=== PATIENT | male | born 1930 ===

== ENCOUNTER 2018-09-28 09:00 | Inpatient (IN) ==
[2018-09-22 13:44] LABS: Appearance,Urine CLEAR; Bilirubin,Urine NEG (NEG); Color,Urine YELLOW; Glucose,Urine (UA) NEGATIVE (NEG); Leukocyte Esterase,Urine NEG /uL (NEG); Protein,Urine NEG (NEG); Specific Gravity,Urine 1.028 (1.000-1.035); Urine Blood NEG mg/dL (<0.03); Urobilinogen,Urine NEG (NEG)
[2018-09-22 15:31] LABS: Blood Urea Nitrogen 37 mg/dl (8-23)
[2018-09-22 16:10] LABS: Basophils # (Auto) 0 K/mcL (0.0-0.3); Basophils % (Auto) 0.3 % (0.0-2.0); Eosinophils # (Auto) 0 K/mcL (0.0-0.7); Eosinophils % (Auto) 0.5 % (0.0-7.0); Granulocytes % (Auto) 76.3 % (38.0-78.0); Lymphocytes # (Auto) 1.1 K/mcL (1.5-4.8); Lymphocytes % (Auto) 13.8 % (15.5-49.0); Mean Cell Volume 91.2 fL (80.0-100.0); Mean Corpuscular HGB Conc 32.5 g/dL (31.0-36.0); Monocytes # (Auto) 0.7 K/mcL (0.1-0.9); Monocytes % (Auto) 9.1 % (1.0-12.0); Platelet Count 256 K/mcL (140-440); RBC 4.71 M/mcL (4.50-5.90); Red Cell Distribution Width 14.6 % (11.5-14.5)
[~2018-09-28 09:00] MED LIST: 0.9 % SODIUM CHLORIDE 9 ML, KETOROLAC 30 MG, ROPIVACAINE HCL/PF 49.5 ML, EPINEPHrine 0.... IJ SCH; ACETAMINOPHEN 500 MG TABLET PO SCH; CELECOXIB 200 MG CAPSULE PO SCH; PREGABALIN 75 MG CAPSULE PO SCH; ceFAZolin 2 GM in DEXTROSE 5% IN WATER 50 ML IV SCH; oxyCODONE 10 MG TAB.ER.12H PO SCH
[2018-09-28] MEDS ORDERED: LIDOCAINE HCL/PF 100 MG/5 ML SYRINGE IV ONE (13:00)
[2018-09-28] MEDS ORDERED: ONDANSETRON 4 MG/2 ML VIAL IV ONE (13:00)
[2018-09-28] MEDS ORDERED: PROPOFOL 200 MG/20 ML VIAL IV ONE (13:00)
[2018-09-28] MEDS ORDERED: GLYCOPYRROLATE 0.2 MG/ML VIAL IV ONE (13:00)
[2018-09-28] MEDS ORDERED: PHENYLEPHRINE 10 MG/ML VIAL IV ONE (13:00)
[2018-09-28] MEDS ORDERED: MIDAZOLAM 5 MG/5 ML VIAL IV ONE (13:00)
[2018-09-28] MEDS ORDERED: DEXAMETHASONE 10 MG/ML VIAL IV ONE (13:00)
[2018-09-28] MEDS ORDERED: TRANEXAMIC ACID 1,000 MG/10 ML VIAL IV ONE ×2 (13:00→14:21)
[2018-09-28] MEDS ORDERED: GENTAMICIN SULFATE 800 MG/20 ML VIAL IR ONE (13:24)
[2018-09-28] MEDS ORDERED: FLUMAZENIL 0.1 MG/ML ML IV PRN (13:30)
[2018-09-28] MEDS ORDERED: BENZOCAINE/MENTHOL 1 LOZENGE PO PRN ×2 (13:30→14:21)
[2018-09-28] MEDS ORDERED: ONDANSETRON 4 MG/2 ML VIAL IV PRN ×2 (13:30→14:21)
[2018-09-28] MEDS ORDERED: IPRATROPIUM/ALBUTEROL 3 ML AMPUL.NEB NEB PRN (13:30)
[2018-09-28] MEDS ORDERED: fentaNYL 100 MCG/2 ML VIAL IV PRN (13:30)
[2018-09-28] MEDS ORDERED: LACTATED RINGERS 250 ML IV PRN (13:30)
[2018-09-28] MEDS ORDERED: METHOCARBAMOL 1,000 MG/10 ML VIAL IV PRN (13:30)
[2018-09-28] MEDS ORDERED: LACTATED RINGERS 1,000 ML IV SCH (13:30)
[2018-09-28] MEDS ORDERED: NALOXONE HCL 0.4 MG/ML VIAL IV PRN (13:30)
[2018-09-28] MEDS ORDERED: TEMAZEPAM 15 MG CAPSULE PO PRN (14:21)
[2018-09-28] MEDS ORDERED: KETOROLAC 15 MG/ML VIAL IV PRN (14:21)
[2018-09-28] MEDS ORDERED: POLYETHYLENE GLYCOL 3350 17 GM PACKET PO PRN (14:21)
[2018-09-28] MEDS ORDERED: MAGNESIUM HYDROXIDE 30 ML ORAL.SUSP PO PRN (14:21)
[2018-09-28] MEDS ORDERED: HYDROCODONE/APAP 7.5/325MG TABLET PO PRN (14:21)
[2018-09-28] MEDS ORDERED: HYDROmorphone 2 MG/ML VIAL IV PRN (14:21)
[2018-09-28] MEDS ORDERED: ACETAMINOPHEN 325 MG TABLET PO PRN ×2 (14:21→14:24)
[2018-09-28] MEDS ORDERED: FLEETS ADULT ENEMA PR PRN (14:21)
[2018-09-28] MEDS ORDERED: BISACODYL 10 MG SUPP.RECT PR PRN (14:21)
--- NOTE | 2018-09-28 14:21 | Brief Operative Note ---
Date of procedure: 09/28/18 Pre-op diagnosis: left hip djd severe Post-op diagnosis: same Procedure: left lili with cemented stem Grafts/Implants: Yes Anesthesia: GETA Complications: none Surgeon: Les Pro Brass Pickler: George Murillo Estimated blood loss (cc): 50 Specimens Removed/Pathology: none sent Condition: stable Disposition: PACU
[2018-09-28] MEDS ORDERED: NAPROXEN 220 MG PO PRN (14:24)
[2018-09-28] MEDS ORDERED: ACETAMINOPHEN 500 MG TABLET PO PRN (14:24)
--- NOTE | 2018-09-28 15:00 | XRay Report ---
CLINICAL INFORMATION: Post-Op Total Hip COMPARISON: None. FINDINGS: Left total hip prostheses is anatomically aligned.. Moderate degeneration noted in the right hip. SI joints show mild degeneration IMPRESSION: Left hip prostheses is anatomically aligned. Moderate right-sided degeneration Interpreted and Authenticated by: Grzegorz Cruz 09/28/18
--- NOTE | 2018-09-28 15:03 | Operative Note ---
DATE OF OPERATION: 09/28/2018 PREOPERATIVE DIAGNOSIS: Left hip degenerative arthritis, severe. POSTOPERATIVE DIAGNOSIS: Left hip degenerative arthritis, severe. PROCEDURE: Left total hip arthroplasty with a cemented stem. SURGEON: Les Pro MD FIRMWARE SOFTWARE VERIFICATION ENGINEER: George Murillo PA-C. ANESTHESIA: General LMA anesthesia. COMPLICATIONS: None. IMPLANTS: A size 6 cemented stem with +2.5 36 mm ceramic head, a 56 mm cup with a 30 mm screw with a hooded liner. ESTIMATED BLOOD LOSS: About 100 mL DESCRIPTION OF PROCEDURE: The patient was brought to the operating room and put to sleep with general LMA anesthesia. Once asleep, the patient had the left hip sterilely prepped and draped in the usual sterile fashion. We confirmed this with a timeout to confirm the operative site by x-rays, consent form and initials. Once done, we then placed Ioban over the skin and made a superior approach to the hip. We dislocated the hip and then reamed up to the size 56, placed a 56 mm cup at 40 degrees of inclination and 20 anteversion. A 30 mm screw was placed with a hooded liner for a 36 mm head. We then broached up on the femur with a trial up to the size 6 stem with a neutral neck length. This was x-rayed to confirm position. It was in slight varus and slightly longer than the other leg. For this, we decided to lateralize which we did and then we countersunk the stem. We cemented into place a size 6 stem with a centralizer canal restrictor. Once the cement was hard with the stem placed at 15 degrees of anteversion we trialed the 2.5 neck length. This seemed to give more stability, equal leg length. We irrigated thoroughly and then placed the final implant. This was reduced. We closed the capsule with #2 Ethibond, closed the fascial layer with #1 Stratafix and closed the skin with Stratafix and 2-0 Vicryl and adhesive closure. Sterile bandage applied. The patient tolerated this well without complication. RBH:ru Job ID: [id number] Doc ID: [id number] Les Pro MD
[2018-09-28] MEDS: 0.45 % SODIUM CHLORIDE 1,000 ML IV SCH (15:34)
--- NOTE | 2018-09-28 16:52 | XRay Report ---
CLINICAL INFORMATION: LEFT TOTAL HIP COMPARISON: None. FINDINGS: Intraoperative plain film shows prosthetic left acetabulum is anatomically aligned. A left femoral stem template is also anatomically aligned. No osseous abnormalities IMPRESSION: Intraoperative film Interpreted and Authenticated by: Grzegorz Cruz 09/28/18
[2018-09-28] MEDS ORDERED: TAMSULOSIN 0.4 MG CAPSULE PO SCH (18:00)
[2018-09-28] MEDS ORDERED: SENNOSIDES 1 TABLET PO SCH (21:00)
[2018-09-28] MEDS: ceFAZolin 1 GM VIAL IV SCH (21:17)
[2018-09-28] MEDS: 0.9 % SODIUM CHLORIDE 10 ML SYRINGE IV SCH (21:17)
[2018-09-28] MEDS: DOCUSATE SODIUM 100 MG CAPSULE PO SCH (21:18)
[2018-09-28] MEDS: ASPIRIN 325 MG ENTERIC COATED TABLET PO SCH (21:18)
[2018-09-29] MEDS: 0.45 % SODIUM CHLORIDE 1,000 ML IV SCH (01:50)
[2018-09-29] MEDS: ceFAZolin 1 GM VIAL IV SCH (04:22)
[2018-09-29] MEDS: 0.9 % SODIUM CHLORIDE 10 ML SYRINGE IV SCH (04:27)
[2018-09-29] MEDS ORDERED: OMEPRAZOLE 20 MG CAPSULE PO SCH (07:30)
--- NOTE | 2018-09-29 07:48 | Orthopedic Progress Note ---
Subjective Patient information: Note initiated : 09/29/18 at 7:47 am Service Date, if different from initiated Date: [] Patient: Ned Arshad 88 y/o M admitted on 09/28/18 for Left Total Hip Arthroplasty. Chief Complaint: [Pt is stable this morning on post operative day 1 without any significant concerns or complaints. Patients vital signs have remained stable. Patients dressing is dry and is grossly intact from a neurovascular and motor standpoint. Patients 10 point ROS is otherwise negative. ] Objective Vital signs: Vital Signs Temp Pulse Resp BP Pulse Ox 09/29/18 06:00 96 09/29/18 03:57 97.7 F 62 20 124/64 98 09/29/18 02:00 96 09/28/18 22:55 97.9 F 104 H 22 132/74 90 09/28/18 22:00 95 09/28/18 20:24 96.6 F L 79 24 H 127/74 96 09/28/18 17:01 151/74 97 09/28/18 17:00 97 09/28/18 16:31 135/68 96 09/28/18 16:16 142/69 97 09/28/18 16:01 140/68 96 09/28/18 15:46 125/64 95 09/28/18 15:42 92 09/28/18 15:31 124/64 90 09/28/18 15:15 98.8 F 71 17 146/63 96 09/28/18 15:05 97.7 F 76 18 142/64 100 09/28/18 14:50 97.6 F 81 19 143/73 100 09/28/18 14:40 70 15 147/68 99 09/28/18 14:35 75 15 137/61 99 09/28/18 14:30 97.6 F 99 H 20 138/61 99 09/28/18 11:23 97.8 F 12 140/75 94 Intake and Output 09/28/18 09/29/18 09/29/18 21:59 05:59 13:59 Intake Total 1200 1300 Output Total 50 550 Balance 1150 750 Intake: IV 1000 Sodium Chloride 0.45% 1,000 ml 1000 @ 100 mls/hr IV .Q10H ALONDRA Rx#: [id number] Oral 300 IV - Manual Only 1200 Output: Urine Catheter Amount 500 Void Amount 50 50 Other: Urine Appearance Clear Urine Color Dark Yellow # Voids 1 Weight 191 lb 8 oz Intake & Output: Intake & Output 09/28/18 09/29/18 09/29/18 21:59 05:59 13:59 Intake Total 1200 1300 Output Total 50 550 Balance 1150 750 Weight 191 lb 8 oz Intake: IV 1000 Sodium Chloride 0.45% 1,000 ml 1000 @ 100 mls/hr IV .Q10H ALONDRA Rx#: [id number] Oral 300 IV - Manual Only 1200 Output: Urine Catheter Amount 500 Void Amount 50 50 Other: Urine Appearance Clear Urine Color Dark Yellow # Voids 1 Incision: Yes healing Incision clean and dry: Yes Dressing: Yes clean Weight bearing status: full Neurological exam IM: Yes normal gait, Yes motor sensory intact Extremities exam IM: Yes Foot pink and warm, Yes neurovascular intact - Labs CBC & BMP: 09/29/18 04:10 09/22/18 11:52 Labs: Orthopedic Labs 09/22/18 11:52 PT 13.7 INR 1.0 09/29/18 09/22/18 04:10 11:52 Hgb 14.0 Hct 37.1 L 43.0 Assessment and Plan (1) Hx of total hip arthroplasty The patient has been educated regarding dressing care, Physical Therapy recommendations, home exercises, restrictions, and follow up appointments. The patient has had all necessary DME prescribed. The patient has remained relatively stable during their hospital course. Status: Acute
--- NOTE | 2018-09-29 07:50 | Discharge Summary ---
Ortho Discharge - LITTLE - Patient Instructions Diet: Regular Diet Activity: activity as tolerated, weight bearing as tolerated Total Hip Protocol: Follow activity instructions as provided by Physical Therapy. Dressing Care: May shower in 2 days - Problem Maintenance (1) Hx of total hip arthroplasty Status: Acute - Follow Up Plan Follow Up Appointments: George Murillo PA-C [Physician Road Gang Supervisor] - 10/13/18 1:40 pm Disposition: Home, Self-Care Prognosis: Good Rehab Potential: Good I certify that the patient requires SNF services: No Overall status at discharge: patient is progressing back to baseline - Orders For Discharge Prescriptions: Aspirin [Ecotrin] 325 mg PO BID #60 tab.ec Docusate Sodium [Colace] 100 mg PO BID #60 cap Hydrocodone/APAP 7.5/325Mg [[place] 7.5-325Mg] 1 - 2 tab PO Q4HP PRN #75 tab PRN Reason: Pain Level 3-6
[2018-09-29] MEDS ORDERED: FERROUS SULFATE 325 MG TABLET PO SCH (08:00)
[2018-09-29] MEDS ORDERED: VITAMIN D3 1,000 UNIT TABLET PO SCH (09:00)
[2018-09-29] MEDS ORDERED: LOSARTAN 50 MG TABLET PO SCH (09:00)
[2018-09-29] MEDS: ASPIRIN 325 MG ENTERIC COATED TABLET PO SCH (09:15)
[2018-09-29] MEDS: DOCUSATE SODIUM 100 MG CAPSULE PO SCH (09:16)
== END 2018-09-29 15:38 | disposition home or self-care (01) | DRG 470 ==
LOC: MEDSUR 09:00
PROVIDERS: ADMIT Orthopaedic Surgery; ATTEND Orthopaedic Surgery